=== PATIENT | female | born 1970 | race Two or more races ===

== ENCOUNTER 2019-12-28 12:02 | Emergency (ER) | payer OTHER ==
[~2019-12-28] VITALS: Ht 172.7 cm; Wt 82.0 kg
[2019-12-28] MEDS ORDERED: ACETAMINOPHEN 325MG TABLET PO STA (13:25)
[2019-12-28] MEDS ORDERED: PANTOPRAZOLE SODIUM 40 MG/VIAL IV STA (13:25)
[2019-12-28] MEDS ORDERED: MAGNESIUM/ALUMINUM HYDROXIDE/SIMETHICONE 30ML UDC PO STA (13:25)
[2019-12-28] MEDS ORDERED: ONDANSETRON HCL 4MG/2ML INJ IV STA (13:25)
[2019-12-28] MEDS ORDERED: SODIUM CHLORIDE 0.9% 1,000 ML IV ONE (13:25)
[2019-12-28 15:36] LABS: BASOPHILS % 0.4 % (0.0-2.0); EOSINOPHILS % 0.6 % (0.0-5.0); HEMOGLOBIN. 15.1 g/dL (12.0-16.0); LYMPHOCYTES % 20.2 % (20.0-50.0); MEAN CORPUSCULAR HEMOGLOBIN 29.7 pg (28.0-32.0); MEAN CORPUSCULAR VOLUME 86.6 fL (81.0-99.0); MEAN PLATELET VOLUME 7.9 fl (7.4-10.4); NEUTROPHILS % 72.8 % (40.0-76.0); PLATELET 309 x1000/uL (130-400); RED BLOOD CELL COUNT 5.08 mill/uL (4.2-5.4); RED CELL DISTRIBUTION WIDTH 12.9 % (11.6-14.6)
[2019-12-28 15:52] LABS: INR 1.1; PARTIAL THROMBOPLASTIN TIME 25.1 sec (23.4-31.0); PROTHROMBIN TIME 11.1 sec (9.6-11.0)
[2019-12-28 16:10] LABS: HCG SCREEN NEGATIVE
[2019-12-28 16:23] LABS: CHLORIDE 106 mEq/L (98-107)
[2019-12-28 16:52] LABS: *BARBITURATES SCREEN URINE NEGATIVE (NEGATIVE)
[2019-12-28 16:53] LABS: *BENZODIAZEPINES SCREEN URINE NEGATIVE (NEGATIVE); *COCAINE SCREEN URINE NEGATIVE (NEGATIVE); CANNABINOID URINE SCREEN NEGATIVE (NEGATIVE); METHADONE URINE SCREEN NEGATIVE (NEGATIVE); OPIATES URINE SCREEN NEGATIVE (NEGATIVE); PHENCYCLIDINE URINE SCREEN NEGATIVE (NEGATIVE)
[2019-12-28 16:54] LABS: *AMPHETAMINES SCREEN URINE NEGATIVE (NEGATIVE)
[2019-12-28 17:31] VITALS: BP 114/65
== END 2019-12-28 17:39 | disposition left against medical advice (07) ==
LOC: ER 12:11
DX: R07.89 Other chest pain (principal); F41.0 Panic disorder [episodic paroxysmal anxiety]; F43.0 Acute stress reaction; K21.9 Gastro-esophageal reflux disease without esophagitis; Z63.0 Problems in relationship with spouse or partner; E03.9 Hypothyroidism, unspecified
CPT/HCPCS: 36415; 71045; 80053; 80305; 83690; 83880; 84484; 84703; 85025; 85610; 85730; 93005; 99285; J7030